=== PATIENT | female | born 1985 | race African-American/Black ===

== ENCOUNTER 2020-02-19 00:58 | Emergency (ER) | payer MEDICAID ==
[~2020-02-19] VITALS: Ht 157.5 cm; Wt 66.2 kg
--- NOTE | 2020-02-19 00:58 | NUR ---
ANJU BARNES, PREBOOK. TAKEN TO CHAIR A
[2020-02-19 01:00] VITALS: BP 137/90
--- NOTE | 2020-02-19 01:04 | NUR ---
Dr. Macdonald examining patient.
--- NOTE | 2020-02-19 01:12 | NUR ---
PT MEDICALLY CLEARED BY DR JONES
--- NOTE | 2020-02-19 01:15 | NUR ---
PATIENT BIB [employer]. PATIENT EXAMINED BY DR. JONES. PATIENT MEDICALLY CLEARED AND RELEASED IN CUSTODY IN STABLE CONDITION. ORIGINAL PRE-BOOK FORM GIVEN TO OFFICER JIE.
--- NOTE | 2020-02-19 01:15 | NUR ---
PT ESCORTED OUT OF FACILITY BY LACHELLE BARNES.
[2020-02-19 01:16] VITALS: BP 137/90
== END 2020-02-19 01:15 ==
LOC: MED 00:58
DX: F20.9 Schizophrenia, unspecified (principal); Z02.89 Encounter for other administrative examinations
CPT/HCPCS: 99283